=== PATIENT | female | born 1950 | race Caucasian/White ===

== ENCOUNTER 2016-06-29 15:49 | Emergency (ER) | payer MEDICARE ==
[~2016-06-29] VITALS: Ht 166.4 cm; Wt 58.3 kg
[2016-06-29 15:51] VITALS: TEMP 98.5; Ht 166.4 cm; Wt 58.3 kg
--- NOTE | 2016-06-29 16:02 | NUR ---
PROVIDER DR. SARAVIA AT BEDSIDE FOR EXAM.
[2016-06-29] MEDS ORDERED: ALBU2.5V7 AEROSOL (16:12)
[2016-06-29] MEDS ORDERED: BECL8.7A6 ORAL INH (16:12)
[2016-06-29] MEDS ORDERED: IBUP-1724 PO (16:13)
--- NOTE | 2016-06-29 16:14 | NUR ---
RT AT BEDSIDE FOR [place].
[2016-06-29] MEDS ORDERED: ALBUTEROL/IPRATROPIUM INHAL. 2.5mg-0.5mg/3ml Neb. AEROSOL ONE (16:15)
--- NOTE | 2016-06-29 16:16 | NUR ---
LAB AT BEDSIDE FOR BLOOD DRAW.
--- NOTE | 2016-06-29 16:26 | ERPDOC ---
Departure Disposition Decision Date: June 29, 2016 Disposition Decision Time: 17:23 Disposition: 01 DISCHARGED HOME, SELF-CARE Impression Impression Impression: Primary Impression: COPD exacerbation Severity: Moderate Condition: Improved Seen By: Physician only Referrals: [facility] Day Patient Instructions: COPD (Chronic Obstructive Pulmonary Disease) (ED) Problems/Meds/Labs Reviewed?: Yes Medications reviewed and manag: Yes Follow up care ordered?: Yes Mental Status: Alert, Oriented Scripts Albuterol Sulfate (Albuterol Sulfate) 2.5 Mg/0.5 Ml Vial.neb 1 VIAL AEROSOL Q4HR for wheezing, #60 VIAL 1 Refill Prov: SHAUNA SARAVIA DO 06/29/16 Prednisone (Prednisone) 20 Mg Tablet 40 MG PO DAILY for 5 Days, #10 TAB 0 Refills Take daily each morning Prov: SHAUNA SARAVIA DO 06/29/16 Tramadol HCl (Ultram) 50 Mg Tablet 50 MG PO Q6HR for PAIN for 3 Days, #12 TAB 0 Refills Take 1 tablet, by mouth, every 6 hours. Prov: SHAUNA SARVAIA DO 06/29/16 Levofloxacin (Levaquin) 750 Mg Tablet 1 TAB PO DAILY for 10 Days, #10 TAB 0 Refills Prov: SHAUNA SARAVIA DO 06/29/16 HPI - General Medical General Chief Complaint: Cough,Fever,Flu,URI Stated Complaint: SOA,BACK PAIN Time Seen by Provider: 15:57 Source: patient Exam Limitations: no limitations HPI - General Medical Initial Comments 66-year-old female presents to the emergency department with a chief complaint of a cough. Patient noted onset of a cough approximately 2 weeks ago. Cough is productive of a yellow sputum. Patient has been wheezing. Patient has a history of COPD with similar symptoms in the past. She denies any pain or discomfort other than chronic low back pain which is currently present. It is at baseline. No radiation. Patient has been using Mucinex and her home nebulizer with improvement of symptoms in the past. Occurred At: home Onset: Gradual Allergies: Coded Allergies: Sulfa (Sulfonamide Antibiotics) (Verified Adverse Reaction, Unknown, UPSET STOMACH, 06/29/16) Past History Past Medical History Respiratory: COPD Musculoskeletal: back pain Surgical History Reproductive/: hysterectomy Family History Family History: Negative Social History Smoking Status: Current every day smoker Substance Use Type: does not use Alcohol Intake: none Review of Systems Constitutional Constitutional: DENIES: chills, fever Eyes General: DENIES: erythema, exudate Lids/Accessories: DENIES: erythema, swelling Vision: DENIES: acuity, blurring ENMT Ears: DENIES: drainage, erythema Hearing: DENIES: hearing loss Balance: DENIES: ataxia, falling to one side Sinuses: DENIES: congestion, pain Nose: DENIES: nosebleeds, pain Mouth/Throat: DENIES: painful swallowing, sore throat Teeth: DENIES: pain Jaw: DENIES: pain Cardiovascular Cardiac: DENIES: chest pain, dyspnea on exertion Rhythm/Rate: DENIES: irregular beat, palpitations Vascular: DENIES: pedal edema, unilateral swelling Pulmonary Respiratory: cough, sputum, DENIES: dyspnea, pleuritic chest pain GI Upper Abdomen: DENIES: nausea, pain, vomiting Lower Abdomen: DENIES: diarrhea, pain General: DENIES: burning, dysuria, frequency, urgency Musculoskeletal General: DENIES: joint pain, tenderness Integumentary Skin: DENIES: itching, rash Neurological General: DENIES: headache, numbness, weakness Psychiatric Psychiatric: DENIES: emotional instability, suicidal ideation/attempt Endocrine Endocrine: DENIES: polydipsia, polyphagia Hematologic/Lymphatic Hematologic/Lymphatic: DENIES: frequent nosebleeds, lymphadenopathy Allergic/Immunological Allergic/Immunoligical: DENIES: allergic reactions, hives Physical Exam General General Nourishment: well nourished, well developed, appears stated age, no acute distress, adult General Body Habitus: well groomed Vitals and Pain First Documented Vital Signs Date Time Temp Pulse Resp B/P Pulse Ox O2 Delivery O2 Flow Rate FiO2 06/29/16 15:51 98.5 100 18 130/79 93 Room Air Weight: Kilograms: 58.300 Height (feet): 5 Height (inches): 5.50 Triage Pain Scale: RN VS reviewed by Provider: Yes Normal Exams: Head: Normocephalic w/o trauma Eyes: Pupils are PERRLA w/ EOMI, No scleral icterus, irritation, or foreign bodies noted ENMT: No facial trauma, nasal exudates, pharyngeal erythema, or exudates are noted Dental: No fractured, loose, or missing teeth noted Neck: Full range of motion, without adenopathy, JVD, bruits or thyromegaly Chest/Resp: with good airflow, and symmetry bilaterally CV: Regular rate and rhythm, without murmur or gallop, Pulses 2+ all extremities, capillary refill, <2 seconds all ext., no pedal edema noted Abdomen: Bowel sounds positive, soft, non-tender, non-distended, no hepatosplenomegaly, masses or bruits noted Lymphatic: No lymphadenopathy, or lymphedema noted Musculoskeletal: No tenderness, or deformity noted, good range of motion, all extremities Integumentary: No rashes, hives, or bruising noted, hair and nails, without abnormality Neurologic: Patient is alert, and oriented, cranial nerves, motor/sensory/ cerebellar, exams w/o gross deficits, to observation Psychiatric: Patient exhibits, appropriate attention, emotion and affect Respiratory (brief) Comments Bilateral end expiratory wheezes noted. Differential Diagnoses Considering: Metabolic, Pneumonia, Other (COPD exacerbation. Acute bronchitis. UTI) Progress Results/Orders Orders Procedure Category Date Status Time Cbc W/Auto LAB 06/29/16 Complete Diff-Reflex Manual Cmp - Comprehensive LAB 06/29/16 Complete Metabolic Troponin I W LAB 06/29/16 Complete Hemolysis Index EKG EKG 06/29/16 Logged Chest, Pa & Lateral RAD 06/29/16 Taken 16:06 Albuterol/Ipratropium PHA 06/29/16 Complete (Duoneb) 16:15 Lactate - Lactic Acid LAB 06/29/16 Complete Lactate - Lactic Acid LAB 06/29/16 Logged 21:10 UA, LAB 06/29/16 Complete Dip&Micro(Complete) & 17:06 Levofloxacin PHA 06/29/16 Complete (Levaquin 750 Mg 17:30 Prednisone PHA 06/29/16 Complete (Prednisone) 17:30 Tramadol (Ultram) PHA 06/29/16 Complete 17:30 Lab Results Laboratory Tests Test 06/29/16 16:20 06/29/16 17:06 White Blood Count 19.9T/MM3 Red Blood Count 4.90M/MM3 Hemoglobin 15.7GM/DL Hematocrit 45.0% Mean Corpuscular Volume 91.8UM3 Mean Corpuscular Hemoglobin 32.0UUG Mean Corpuscular Hemoglobin Concent 34.9GM/DL RDW Standard Deviation 42.3FL Platelet Count 323T/MM3 Mean Platelet Volume 9.3UM3 Immature Granulocyte % (Auto) % Neutrophils (%) (Auto) % Lymphocytes (%) (Auto) % Monocytes (%) (Auto) % Eosinophils (%) (Auto) % Basophils (%) (Auto) % Absolute Immature Granulocyte (auto T/MM3 Absolute Neutrophils (auto) T/MM3 Absolute Lymphocytes (auto) T/MM3 Absolute Monocytes (auto) T/MM3 Absolute Eosinophils (auto) T/MM3 Absolute Basophils (auto) T/MM3 Neutrophils % (Manual) 77.0% Band Neutrophils % 1.0% Lymphocytes % (Manual) 15.0% Monocytes % (Manual) 6.0% Eosinophils % (Manual) 1.0% Absolute Neutrophils (Manual) 15.3T/MM3 Band Neutrophils # 0.2T/MM3 Lymphocytes # (Manual) 3.0T/MM3 Monocytes # (Manual) 1.2T/MM3 Eosinophils # (Manual) 0.2T/MM3 Red Cell Morphology Comment Normal Turbidity < 20 Sodium Level 143MEQ/L Potassium Level 4.3MEQ/L Chloride Level 105MEQ/L Carbon Dioxide Level 26MEQ/L Anion Gap 12MEQ/L Blood Urea Nitrogen 17.0MG/DL Creatinine 0.7MG/DL Glomerular Filtration Rate Calc 84 BUN/Creatinine Ratio 24RATIO Glucose Level 131MG/DL Calculated Osmolality 279MOSM/KG Calcium Level 9.4MG/DL Total Bilirubin 0.80MG/DL Icterus Index < 2 Aspartate Amino Transf (AST/SGOT) 14U/L Alanine Aminotransferase (ALT/SGPT) 33U/L Alkaline Phosphatase 110U/L Troponin I < 0.012ng/ml Total Protein 7.1G/DL Albumin 4.1G/DL Globulin 3.0G/DL Albumin/Globulin Ratio 1.4RATIO Plasma Lactate 0.9MMOL/L Chemistry Specimen Hemolysis < 15 Urine Collection Type Cleancatch-midstream Urine Color Yellow Urine Turbidity Clear Urine pH 5.5 Urine Specific [place] 1.025 Urine Protein Negative Urine Glucose (UA) Negative Urine Ketones Negative Urine Blood 1+ Urine Nitrite Negative Urine Bilirubin 1+ Urine Urobilinogen 1.0EU/DL Urine Leukocyte Esterase Negative Urine RBC 0-1/HPF Urine WBC 1-3/HPF Urine Squamous Epithelial Cells 0-5 Urine Bacteria Trace Urine Mucus Present Urine Culture Indicated Cult not indicated Medications Current ED Medications Albuterol/ Ipratropium (Duoneb) 3 ml O ONCE AEROSOL Last administered on 5/21/ 17at 16:14; Start 06/29/16 at 16:15; Stop 06/29/16 at 16:16; Status DC Levofloxacin (LEVAQUIN 750 mg tablet) 750 mg O ONCE PO ; Start 06/29/16 at 17: 30; Stop 06/29/16 at 17:32; Status DC Prednisone (PredniSONE) 40 mg O ONCE PO ; Start 06/29/16 at 17:30; Stop at 17:32; Status DC Tramadol HCl (Ultram) 50 mg O ONCE PO ; Start 06/29/16 at 17:30; Stop 06/29/16 at 17:32; Status DC Progress Progress Labs / imaging were discussed in detail with the patient and questions are answered. Patient was given a DuoNeb treatment in the emergency department with resolution of wheezing. Patient was given Ultram 50 mg by mouth 1 with improvement of her chronic back pain which is at baseline. Patient was given Levaquin 750 mg by mouth times one. She was given prednisone 40 mg by mouth times one. Patient is noted to have a white blood cell count elevation at 19. She is afebrile. Her vital signs are stable. Her lactic acid is 0.9. We do not have a source of infection. Patient was recommended to undergo admission to the hospital which she declines. Risk versus benefit of this is discussed in detail with the patient who verbalizes agreement and understanding. Patient is discharged home in accordance with her wishes. She is to follow up as instructed. She is to return to the emergency Department if her condition worsens or changes in any manner. Prescription for Levaquin, Ultram, prednisone , and albuterol are provided. Patient is a known COPD patient who does not use home oxygen. She is maintaining her oxygen saturation at 93-94% on room air in the emergency department. EKG EKG : Rate: 60-100 Rhythm: sinus [place]: normal QRS: normal Intervals: normal ST/T: normal Interpreted by: signing physician Xray Xray : Xray: CXR PA/Lat Interpretation: Normal (COPD Changes. NO infiltrate. ), Faxed Report SHAUNA SARAVIA DO June 29, 2016 16:26
[2016-06-29 16:28] LABS: HGB - HEMOGLOBIN 15.7 GM/DL (12-16); MEAN CORPUSCULAR HGB CONC(MCHC 34.9 GM/DL (31-37); MEAN CORPUSCULAR VOLUME 91.8 UM3 (80-100); MEAN PLATELET VOLUME 9.3 UM3 (9.4-12.4); WBC - WHITE BLOOD COUNT 19.9 T/MM3 (4.5-11.0)
--- NOTE | 2016-06-29 16:28 | NUR ---
XRAY PT TO XRAY BY CART AT THIS TIME.
--- NOTE | 2016-06-29 16:31 | NUR ---
RETURN PT RETURNED FROM XRAY AT THIS TIME.
[2016-06-29 16:36] LABS: ALBUMIN 4.1 G/DL (3.5-5.0); ALBUMIN/GLOBULIN RATIO 1.4 RATIO (1.1-2.2); ALKALINE PHOSPHATASE 110 U/L (38-126); ALT (SGPT) 33 U/L (9-52); ANION GAP 12 MEQ/L (5-15); AST (SGOT) 14 U/L (14-36); BUN/CREATININE RATIO 24 RATIO (6-26); CALCIUM 9.4 MG/DL (8.4-10.2); CHLORIDE 105 MEQ/L (98-107); CO2 - CARBON DIOXIDE 26 MEQ/L (22-30); CREATININE 0.7 MG/DL (0.7-1.2); GLOMERULAR FILTRATION RATE 84; GLUCOSE 131 MG/DL (65-110); POTASSIUM 4.3 MEQ/L (3.6-5); SODIUM 143 MEQ/L (134-144); TOTAL PROTEIN 7.1 G/DL (6.3-8.2)
[2016-06-29 16:43] LABS: BAND NEUTROPHILS # 0.2 T/MM3; EOSINOPHILS # (MANUAL) 0.2 T/MM3 (0-0.5); MONOCYTES # (MANUAL) 1.2 T/MM3 (0-0.8); NEUTROPHILS #(MANUAL)-ABSOLUTE 15.3 T/MM3 (1.8-7.7); TOTAL CELLS COUNTED 100 %
--- NOTE | 2016-06-29 17:09 | NUR ---
PROVIDER DR. SARAVIA AT BEDSIDE TO SPEAK WITH PT.
[2016-06-29 17:11] LABS: BLOOD, URINE 1+ (NEGATIVE); COLOR,URINE YELLOW (YELLOW); LEUKOCYTE ESTERASE ,URINE NEGATIVE (NEGATIVE); NITRITE,URINE NEGATIVE (NEGATIVE)
[2016-06-29 17:17] LABS: MUCUS,URINE PRESENT; RBC,URINE 0-1 /HPF (0-3); SQUAMOUS EPITHELIAL CELL,UR 0-5
[2016-06-29 17:18] LABS: BACTERIA,URINE TRACE (NEGATIVE)
[2016-06-29] MEDS ORDERED: PRED20TA PO (17:27)
[2016-06-29] MEDS ORDERED: LEVO750T20 PO (17:27)
[2016-06-29] MEDS ORDERED: ALBU2.5V2 AEROSOL (17:27)
[2016-06-29] MEDS ORDERED: TRAM50TA53 PO (17:27)
[2016-06-29] MEDS ORDERED: PredniSONE 10 MG TABLET PO ONE (17:30)
[2016-06-29] MEDS ORDERED: TRAMADOL 50 MG TABLET PO ONE (17:30)
[2016-06-29] MEDS ORDERED: LEVOFLOXACIN 750 MG TABLET PO ONE (17:30)
[2016-06-29 17:47] VITALS: BP 112/64; PULSE 93; RESP 18; O2SAT 92
--- NOTE | 2016-06-29 17:47 | NUR ---
DISCHARGE WRITTEN INSTRUCTIONS WITH ALBUTEROL, LEVAQUIN, PREDNISONE, AND TRAMADOL RX REVIEWED AND SENT WITH PT. PT VERBALIZES UNDERSTANDING OF DI AND MEDICATIONS, DENIES QUESTIONS. REPORTS LUMBAR BACK PAIN REMAINS 8/10, AND IMPROVEMENT IN BREATHING. STATES "I DON'T FEEL WINDY." PT AMBULATES OUT OF ER WITH STEADY GAIT ACCOMP BY FAMILY AT THIS TIME.
--- NOTE | 2016-06-30 07:33 | DI ---
Indication: ITS.REASON: cough CHEST, PA LATERAL: Comparison: None Technique: PA and lateral chest Findings: Patient demonstrates normal heart, mediastinum and central vascularity. Mildly increased basilar markings are seen along the left heart border. This could represent an early pneumonitis. No acute bony findings appreciated. Patient does show mild scoliotic deformity in the thoracolumbar spine. Impression: 1. Slightly increased basilar markings on the left side. 2. Mild rotoscoliosis. .
== END 2016-06-29 17:47 | disposition home or self-care (01) ==
LOC: ED 15:49
DX: J44.1 Chronic obstructive pulmonary disease with (acute) exacerbation (principal); M54.5 Low back pain; G89.29 Other chronic pain; F17.200 Nicotine dependence, unspecified, uncomplicated
CPT/HCPCS: 36415; 71020; 80053; 81001; 83605; 84484; 85025; 93005; 94640; 99283; A9270; J7512